=== PATIENT | male | born 1935 | race Caucasian/White ===

== ENCOUNTER 2020-11-12 21:25 | Inpatient (IN) ==
[2020-11-12] MEDS ORDERED: NS 0.9% 1000 ml BAG 1,000 ML IV ONE (21:43)
[2020-11-12 23:56] LABS: INR 1.3 (0.82-1.09)
[2020-11-13 00:03] LABS: Hematocrit 47 % (42-52); Hemoglobin 15.8 g/dL (14.0-18.0); Mean Corpuscular HGB Conc 34 g/dL (31-36); Mean Corpuscular Hemoglobin 31 pg (27-31); Mean Corpuscular Volume 93 fL (80-94); Mean Platelet Volume 8.5 fL (7.4-10.4); Platelet Count 296 10^3/uL (150-450); Red Blood Count 5.09 10^6 /uL (4.18-5.48); Red Cell Distribution Width 14 % (10-15); White Blood Count 27.3 10^3/uL (3.5-10.8)
[2020-11-13 00:08] LABS: ALT 16 U/L (7-52); AST 43 U/L (13-39); Albumin 3.7 g/dL (3.2-5.2); Albumin/Globulin Ratio 1.2 (1-3); Alkaline Phosphatase 61 U/L (34-104); Anion Gap 10 mmol/L (2-11); BUN/Creatinine Ratio 21.5 (8-20); Blood Urea Nitrogen 35 mg/dL (6-24); C Reactive Protein 213.37 mg/L (<8.01); CO2 Carbon Dioxide 26 mmol/L (22-32); Calcium 9.6 mg/dL (8.6-10.3); Chloride 108 mmol/L (101-111); EGFR African American 48.8 (>60); EGFR Non-African American 40.3 (>60); Globulin 3.1 g/dL (2-4); Glucose 128 mg/dL (70-100); Potassium 4.7 mmol/L (3.5-5.0); Sodium 144 mmol/L (135-145); Total Protein 6.8 g/dL (6.4-8.9)
[2020-11-13 00:14] LABS: Troponin I 0.04 ng/mL (<0.03)
[2020-11-13] MEDS ORDERED: cefTRIAXone 1 gm/50 mL NS BAG 1 GM/50 ML BAG IV ONE (00:21)
[2020-11-13 00:22] LABS: ABS Lymphocytes 0.4 10^3/ul (1.0-4.8); ABS Neutrophils 25.8 10^3/ul (1.5-7.7); Lymphocyte % 1.4 %
[2020-11-13] MEDS ORDERED: NS 0.9% 1000 ml BAG 1,000 ML IV ONE (00:22)
[2020-11-13 00:28] LABS: Urine Benzodiazepine Screen None Detected (None Detect); Urine Buprenorphine Screen None Detected (None Detect); Urine Cannabinoids Screen None Detected (None Detect); Urine Fentanyl Screen None Detected (None Detect); Urine Hydrocodone Screen None Detected (None Detect); Urine Opiates Screen None Detected (None Detect)
[2020-11-13 00:29] LABS: Urine Appearance Cloudy; Urine Bilirubin Negative (Negative); Urine Blood 3+ (Negative); Urine Color Yellow; Urine Glucose Negative (Negative); Urine Ketones Negative (Negative); Urine Nitrite Positive (Negative); Urine Protein 1+(30 mg/dL) (Negative); Urine Specific Gravity 1.015 (1.010-1.030); Urine Urobilinogen Negative (Negative)
[2020-11-13 00:34] LABS: Influenza A Molecular Negative (Negative); Influenza B Molecular Negative (Negative)
[2020-11-13 00:36] LABS: Urine Bacteria 1+ (Absent); Urine Red Blood Cell 2+(6-10/hpf) (Absent); Urine White Blood Cell 3+(>20/hpf) (Absent)
[2020-11-13] MEDS ORDERED: Iodixanol (CONTRAST) 320 MG/ML 100 ML SDV IV ONE (00:41)
[2020-11-13 03:17] LABS: Troponin I 0.04 ng/mL (<0.03)
[2020-11-13] MEDS ORDERED: Lactated Ringers 1000 ml BAG 1,000 ML IV SCH (04:00)
[2020-11-13] MEDS ORDERED: Vancomycin 1,250 MG in NS 0.9% 250 ml 250 ML IVPB ONE (04:26)
[2020-11-13 04:52] LABS: Creatine Kinase 1898 U/L (10-223)
[2020-11-13] MEDS ORDERED: Vancomycin per Pharmacy 1 EA NOTE FOLLOW UP SCH (05:00)
[2020-11-13] MEDS ORDERED: Enoxaparin 30 MG/0.3 ML SYR SUBCUT SCH (06:00)
[2020-11-13] MEDS ORDERED: Cefepime 2 GM in Dextrose 2 GM/50 ML BAG IV ONE (06:08)
[2020-11-13 06:16] LABS: Troponin I 0.06 ng/mL (<0.03)
[2020-11-13] MEDS ORDERED: CEFEPIME 2 GM in Dextrose 50 mL IV ONE (06:30)
[2020-11-13] MEDS: Enoxaparin 30 MG/0.3 ML SYR SUBCUT SCH ×2 (08:38→08:39)
[2020-11-13] MEDS: Azithromycin 500 mg/250 ml NS 500 MG/250 ML BAG IVPB SCH (08:38)
[2020-11-13 10:44] LABS: Creatine Kinase 1597 U/L (10-223)
[2020-11-13 10:49] LABS: Troponin I 0.06 ng/mL (<0.03)
[2020-11-13] MEDS ORDERED: Zosyn per Pharmacy NOTE FOLLOW UP SCH (11:00)
[2020-11-13] MEDS ORDERED: Lactated Ringers 1000 ml BAG 1,000 ML IV ONE (13:02)
[2020-11-13] MEDS ORDERED: Cefepime 2 GM in Dextrose 2 GM/50 ML BAG IV SCH (18:00)
[2020-11-13] MEDS ORDERED: ZOSYN 3.375 GM x ONE DOSE over 30 miuntes IV (18:00)
[2020-11-13] MEDS: ZOSYN 3.375 GM Q8H per EXTENDED INFUSION IV SCH (21:44)
[2020-11-14] MEDS ORDERED: Lactated Ringers 1000 ml BAG 1,000 ML IV SCH (00:01)
[2020-11-14] MEDS: ZOSYN 3.375 GM Q8H per EXTENDED INFUSION IV SCH ×3 (05:26→21:13)
[2020-11-14] MEDS: Vancomycin 1000 MG in NS 0.9% 250 ML IVPB SCH (05:55)
[2020-11-14 06:19] LABS: Hematocrit 37 % (42-52); Hemoglobin 12.5 g/dL (14.0-18.0); Mean Corpuscular HGB Conc 34 g/dL (31-36); Mean Corpuscular Hemoglobin 31 pg (27-31); Mean Corpuscular Volume 92 fL (80-94); Mean Platelet Volume 8.9 fL (7.4-10.4); Platelet Count 225 10^3/uL (150-450); Red Blood Count 4.08 10^6 /uL (4.18-5.48); Red Cell Distribution Width 14 % (10-15); White Blood Count 18.6 10^3/uL (3.5-10.8)
[2020-11-14 06:33] LABS: BUN/Creatinine Ratio 23.9 (8-20); Calcium 8.6 mg/dL (8.6-10.3); EGFR African American 59.1 (>60); EGFR Non-African American 48.9 (>60); Magnesium 2.1 mg/dL (1.9-2.7); Potassium 3.8 mmol/L (3.5-5.0)
[2020-11-14] MEDS ORDERED: D5W 1/2 NS 1000 ml BAG 1,000 ML IV SCH (08:00)
[2020-11-14] MEDS: Azithromycin 500 mg/250 ml NS 500 MG/250 ML BAG IVPB SCH (08:25)
[2020-11-14] MEDS: Enoxaparin 30 MG/0.3 ML SYR SUBCUT SCH (08:28)
[2020-11-15] MEDS: ZOSYN 3.375 GM Q6H IV SCH ×4 (04:38→21:58)
[2020-11-15] MEDS: Vancomycin 1000 MG in NS 0.9% 250 ML IVPB SCH (05:16)
[2020-11-15] MEDS: Azithromycin 500 mg/250 ml NS 500 MG/250 ML BAG IVPB SCH (09:05)
[2020-11-15] MEDS: Enoxaparin 30 MG/0.3 ML SYR SUBCUT SCH (09:05)
[2020-11-15 11:13] LABS: ABS Lymphocytes 0.7 10^3/ul (1.0-4.8); ABS Monocytes 0.5 10^3/ul (0-0.8); ABS Neutrophils 13.8 10^3/ul (1.5-7.7); Eosinophil % 0.3 %; Hematocrit 39 % (42-52); Hemoglobin 13.2 g/dL (14.0-18.0); Lymphocyte % 4.8 %; Mean Corpuscular HGB Conc 34 g/dL (31-36); Mean Corpuscular Hemoglobin 31 pg (27-31); Mean Corpuscular Volume 92 fL (80-94); Mean Platelet Volume 8.9 fL (7.4-10.4); Platelet Count 240 10^3/uL (150-450); Red Blood Count 4.25 10^6 /uL (4.18-5.48); Red Cell Distribution Width 14 % (10-15); White Blood Count 15.1 10^3/uL (3.5-10.8)
[2020-11-15 11:33] LABS: BUN/Creatinine Ratio 17.7 (8-20); Calcium 8.6 mg/dL (8.6-10.3); EGFR African American 66.9 (>60); EGFR Non-African American 55.3 (>60); Potassium 3.6 mmol/L (3.5-5.0)
[2020-11-16] MEDS: ZOSYN 3.375 GM Q6H IV SCH ×4 (05:41→22:35)
[2020-11-16] MEDS ORDERED: Vancomycin Trough Check NOTE FOLLOW UP ONE (06:00)
[2020-11-16 07:01] LABS: Hematocrit 39 % (42-52); Mean Corpuscular HGB Conc 34 g/dL (31-36); Mean Corpuscular Hemoglobin 31 pg (27-31); Mean Corpuscular Volume 92 fL (80-94); Mean Platelet Volume 8.4 fL (7.4-10.4); Platelet Count 237 10^3/uL (150-450); Red Blood Count 4.22 10^6 /uL (4.18-5.48); Red Cell Distribution Width 13 % (10-15); White Blood Count 11.5 10^3/uL (3.5-10.8)
[2020-11-16 07:26] LABS: BUN/Creatinine Ratio 14.5 (8-20); Calcium 8.6 mg/dL (8.6-10.3); EGFR African American 71.5 (>60); EGFR Non-African American 59.1 (>60); Potassium 3.6 mmol/L (3.5-5.0)
[2020-11-16] MEDS: Enoxaparin 30 MG/0.3 ML SYR SUBCUT SCH (08:24)
[2020-11-17] MEDS: ZOSYN 3.375 GM Q6H IV SCH ×4 (05:08→23:08)
[2020-11-17 06:06] LABS: Hematocrit 38 % (42-52); Hemoglobin 12.7 g/dL (14.0-18.0); Mean Corpuscular HGB Conc 34 g/dL (31-36); Mean Corpuscular Hemoglobin 31 pg (27-31); Mean Corpuscular Volume 93 fL (80-94); Mean Platelet Volume 8.4 fL (7.4-10.4); Platelet Count 218 10^3/uL (150-450); Red Blood Count 4.07 10^6 /uL (4.18-5.48); Red Cell Distribution Width 14 % (10-15); White Blood Count 12.8 10^3/uL (3.5-10.8)
[2020-11-17 06:18] LABS: Calcium 8.1 mg/dL (8.6-10.3); Potassium 3.5 mmol/L (3.5-5.0)
[2020-11-17] MEDS ORDERED: Senna TAB 8.6 mg TAB PO PRN (06:20)
[2020-11-17] MEDS ORDERED: Polyethylene Glycol 3350 17 GM PACKET PO PRN (06:20)
[2020-11-17 06:24] LABS: BUN/Creatinine Ratio 17.8 (8-20); EGFR African American 79.3 (>60); EGFR Non-African American 65.5 (>60)
[2020-11-17] MEDS: Enoxaparin 30 MG/0.3 ML SYR SUBCUT SCH (10:23)
[2020-11-18] MEDS: ZOSYN 3.375 GM Q6H IV SCH ×4 (05:44→23:16)
[2020-11-18 06:58] LABS: Hematocrit 41 % (42-52); Mean Corpuscular HGB Conc 34 g/dL (31-36); Mean Corpuscular Hemoglobin 31 pg (27-31); Mean Corpuscular Volume 92 fL (80-94); Mean Platelet Volume 8.2 fL (7.4-10.4); Platelet Count 278 10^3/uL (150-450); Red Blood Count 4.48 10^6 /uL (4.18-5.48); Red Cell Distribution Width 14 % (10-15); White Blood Count 8.7 10^3/uL (3.5-10.8)
[2020-11-18 07:07] LABS: BUN/Creatinine Ratio 15.1 (8-20); EGFR African American 80.2 (>60); EGFR Non-African American 66.2 (>60)
[2020-11-18] MEDS: Enoxaparin 30 MG/0.3 ML SYR SUBCUT SCH (08:06)
[2020-11-18] MEDS: Morphine ORAL CONCENTRATE 5 MG/0.25 ML ORAL.SYRIN PO PRN ×2 (13:08→20:15)
[2020-11-19] MEDS: ZOSYN 3.375 GM Q6H IV SCH (05:13)
[2020-11-19] MEDS: Morphine ORAL CONCENTRATE 5 MG/0.25 ML ORAL.SYRIN PO PRN (06:09)
[2020-11-19] MEDS: Enoxaparin 30 MG/0.3 ML SYR SUBCUT SCH (09:43)
[2020-11-19 11:23] VITALS: BP 151/72
== END 2020-11-19 12:00 | disposition home or self-care (01) | DRG 871 ==
LOC: ED 21:25 → MED 11-13 03:27
PROVIDERS: ADMIT Internal Medicine; ATTEND Internal Medicine